=== PATIENT | female | born 1965 | race American Indian/Alaskan Native ===

== ENCOUNTER 2017-02-18 15:59 | Outpatient (CLI) | payer BC, OTHER | END 2017-02-18 16:00 | disposition home or self-care (01) | LOC: LABHHL 15:59 | PROVIDERS: ATTEND Surgery | DX: N63 Unspecified lump in breast (principal) | CPT/HCPCS: 88305; 88307; 88341; 88342 ==

== ENCOUNTER 2021-06-20 10:08 | Outpatient (CLI) | payer BC ==
--- NOTE | 2021-06-23 10:24 | Mammography Report ---
DIGITAL SCREENING MAMMOGRAM WITH CAD, 06/20/2021 CLINICAL INFORMATION / INDICATION: Routine screening mammography. SCREENING UNILATERAL RIGHT MAMMO Z1 2.31 TECHNIQUE: Digital right 2D mammography was obtained in the craniocaudal and mediolateral oblique pr ojections. This examination was interpreted with the benefit of Computer-Aided Detection analysis. COMPARISON: 06/17/2020 FINDINGS: Breast Density: There are scattered areas of fibroglandular density. No dominant mass, suspicious calcifications, or architectural distortion in the right breast. Post reduction changes remain. A biopsy clip of the right breast remains. IMPRESSION: No mammographic evidence of malignancy. Follow up recommendation: Routine yearly BI-RADS Category 2: Benign. A "normal" or negative report should not discourage follow up or biopsy of a clinically significant f inding. A written summary of these findings will be mailed to the patient. The patient will be entered into a mammography reporting system which will generate a reminder letter for the patient's next appointmen t at the appropriate interval. The [employer] recommends yearly mammograms starting at age 40 and continuing as l linda as a woman is in good health. Breast MRI is recommended for women with an approximate 20-25% or greater lifetime risk of breast cancer, including women with a strong family history of breast or ova shannan cancer or who have been treated for Hodgkin's disease. Signer Name: King Rihc MD Signed: 06/23/2021 10:19 AM Workstation Name: [id number]
== END 2021-06-20 10:09 | disposition home or self-care (01) ==
LOC: SPVWC 10:08
PROVIDERS: ATTEND Surgery
DX: Z12.31 Encounter for screening mammogram for malignant neoplasm of breast (principal)